=== PATIENT | female | born 1935 | race Caucasian/White ===

== ENCOUNTER 2018-06-26 15:27 | Inpatient (IN) | payer MEDICARE, BC ==
[~2018-06-26] VITALS: Ht 152.4 cm; Wt 57.7 kg
[~2018-06-26 15:27] MED LIST: CARB-96 PO
--- NOTE | 2018-06-26 15:35 | NUR ---
SEEN AND EXAMINED BY DR. NICHOLSON.
[2018-06-26] MEDS ORDERED: RIVA1PAT11 TD (15:40)
[2018-06-26] MEDS ORDERED: CARB1TAB21 PO (15:40)
--- NOTE | 2018-06-26 15:40 | NUR ---
PT [id number], C/O SYNCOPAL EPISODE AROUND 2:48PM FROM THE [facility],-INJURY, PT IS AAOX2-3, NOT IN RESPIRATORY DISTRESS, V/S STABLE, KEPT RESTED AND COMFORTABLE. WILL CONTINUE TO MONITOR.
--- NOTE | 2018-06-26 15:45 | NUR ---
LABS DRAWNED AND SENT TO LAB. AWAITING RESULTS.
[2018-06-26 15:55] LABS: BASOPHILS # (AUTO) 0.1 /CMM (0.0-0.2); BASOPHILS % (AUTO) 0.9 % (0.0-2.0); EOSINOPHILS % (AUTO) 1.6 % (0.0-6.0); HEMATOCRIT 41 % (33-45); HEMOGLOBIN 13.6 g/dL (11.5-14.8); LYMPHOCYTES # (AUTO) 2.2 /CMM (0.8-4.8); LYMPHOCYTES % (AUTO) 27.7 % (20.0-44.0); MEAN CORPUSCULAR HGB CONC 34 g/dl (31.0-36.0); MEAN CORPUSCULAR VOLUME 86 fL (82-100); MONOCYTES # (AUTO) 0.7 /CMM (0.1-1.30); MONOCYTES % (AUTO) 8.8 % (2.0-12.0); NEUTROPHILS # (AUTO) 4.8 /CMM (1.8-8.9); PLATELET COUNT (AUTO) 245 /CMM (150-450); RED BLOOD CELL COUNT(AUTO) 4.75 MIL/uL (4.0-5.2); WHITE BLOOD COUNT (AUTO) 7.9 K/uL (4.3-11.0)
[2018-06-26 16:04] LABS: CALCIUM, SERUM 9.6 mg/dL (8.5-10.1); CARBON DIOXIDE 31 mmol/L (21-32); CHLORIDE 105 mmol/L (98-107); GLUCOSE 130 mg/dL (74-106); POTASSIUM 4.6 mmol/L (3.5-5.1); SODIUM SERUM 140 mmol/L (136-145); UREA NITROGEN, BLOOD 17 mg/dL (7-18)
[2018-06-26 16:10] LABS: ALANINE AMINOTRANSFERASE 10 U/L (12-78); ALBUMIN 3.5 g/dL (3.4-5.0); ALKALINE PHOSPHATASE 79 U/L (46-116); ASPARTATE AMINOTRANSFERASE 23 U/L (15-37); BILIRUBIN,DIRECT 0.1 mg/dL (0.0-0.2); BILIRUBIN,TOTAL 0.4 mg/dL (0.2-1.0); TOTAL PROTEIN, SERUM 7.7 g/dL (6.4-8.2)
[2018-06-26] MEDS ORDERED: LORAZEPAM INJ 2 MG/ML VIAL IV ONE (16:30)
--- NOTE | 2018-06-26 17:41 | NUR ---
TECH AT BEDSIDE FOR XRAY.
--- NOTE | 2018-06-26 18:22 | NUR ---
DR. JUSTIN GLYNN AT BEDSIDE FOR EVAL.
[2018-06-26] MEDS ORDERED: MAG HYDROX/AL HYDROX/SIMETH 30 ML UDC PO PRN (18:30)
[2018-06-26] MEDS ORDERED: Z GUARD REMEDY 2 OZ OINT TP PRN (18:30)
[2018-06-26] MEDS ORDERED: ACETAMINOPHEN 325 MG TABLET PO PRN (18:30)
[2018-06-26] MEDS ORDERED: MAGNESIUM HYDROXIDE 30 ML UDC PO PRN (18:30)
[2018-06-26] MEDS ORDERED: ONDANSETRON HCL/PF 4 MG/2 ML VIAL IVP PRN (18:30)
[2018-06-26] MEDS ORDERED: ZOLPIDEM TARTRATE 5 MG TABLET PO PRN (18:30)
--- NOTE | 2018-06-26 19:29 | NUR ---
REPORT GIVEN TO MICHAEL COLLINS FOR NATHAN.
[2018-06-26] MEDS ORDERED: ENOXAPARIN SODIUM 40 MG/0.4 ML DISP.SYRIN SQ ONE (20:00)
--- NOTE | 2018-06-26 20:03 | NUR ---
REPORT GIVEN TO MICHAEL ACOSTA FOR NATHAN
[2018-06-26] MEDS ORDERED: ACETAMINOPHEN ES 500 MG TABLET ONE (20:15)
[2018-06-26 20:30] VITALS: BP 131/95
[2018-06-26] MEDS ORDERED: ACETAMINOPHEN ES 500 MG TABLET PO PRN (20:30)
--- NOTE | 2018-06-26 20:30 | NUR ---
RN NOTE RECEIVED PATIENT FROM AREN WHEEL WORKER, PATIENT IS ALERT/ORIENTED X 2, WITH TIMES OF CONFUSION, DAUGHTER ANGEL IS BY BEDSIDE AND CAREGIVER THAT WILL STAY WITH THE PATIENT OVERNIGHT, AMBULATE WITH ASSIST, DX POSSIBLE SEIZURE, HISTORY OF DEMENTIA AND PARKINSON, SR ON THE MONITOR, SKIN IS INTACT, RAC 20 GAUGE NOTED, NO S/S OF INFECTION/INFILTRATION NOTED, CONTINENT, ALL SAFETY MEASURES TAKEN, VITAL SIGNS STABLE, WILL CONTINUE TO MONITOR PATIENT
[2018-06-26] MEDS: CARBIDOPA/LEVODOPA 25/100 MG 1 UDTAB PO SCH (21:04)
[2018-06-26] MEDS: ASPIRIN EC 81 MG TABLET.DR PO SCH (21:05)
[2018-06-26] MEDS: HYDROCODONE/APAP 5/325MG 1 EACH TABLET PO PRN (21:15)
--- NOTE | 2018-06-27 | NUR ---
RN NOTE PATIENT I SALERT/ORIENTED X2, REFUSED VITAL SIGNS AT 0000, EXPLAINED ALL RISKS AND BENEFITS, STILL REFUSE, CHARGE NURSE IS AWARE
--- NOTE | 2018-06-27 01:54 | NUR ---
RN NOTE WOODROW TORO IS BY BEDSIDE, NEW ORDER OF URINE CULTURE IS GIVEN AND CARRIED OUT, URINE WAS COLLECTED AND SENT TO LAB
[2018-06-27 04:00] VITALS: BP 140/73
[2018-06-27 04:46] VITALS: BP 140/73
--- NOTE | 2018-06-27 06:48 | NUR ---
RN NOTE PATIENT RESTED WELL AT NIGHT, AWAKE, ALERT/ORIENTED X 2 WITH CONFUSION AT TIMES, CAREGIVER IS BY BEDSIDE, ALL SAFETY MEASURES TAKEN, BEDSIDE REPORT PROVIDED
--- NOTE | 2018-06-27 07:42 | NUR ---
FITNESS PROFESSIONAL OPENING NOTES RECEIVED PT LAYING IN BED, RESTING COMFORTABLY. PT IS EASILY AROUSABLE, A/O X1-2, AFEBRILE. RESPIRATIONS ARE EVEN AND UNLABORED. PT DENIES ANY PAIN AT THIS TIME, NO C/O SOB, N/V. IV SITE TO RAC INTACT, NO INFILTRATION NOTED. DRESSING KEPT CLEAN AND DRY. SAFETY MEASURES ARE IN PLACE. INSTRUCTED PT TO USE CALL LIGHT WHEN ASSISTANCE IS NEEDED, CALL LIGHT IS LEFT WITHIN REACH. PERSONAL CG AT BEDSIDE. WILL MONITOR THROUGHOUT SHIFT FOR CONTINUITY OF CARE.
[2018-06-27 07:49] LABS: BASOPHILS # (AUTO) 0.1 /CMM (0.0-0.2); BASOPHILS % (AUTO) 1.4 % (0.0-2.0); EOSINOPHILS % (AUTO) 0.9 % (0.0-6.0); HEMATOCRIT 42 % (33-45); HEMOGLOBIN 13.9 g/dL (11.5-14.8); LYMPHOCYTES # (AUTO) 2.3 /CMM (0.8-4.8); LYMPHOCYTES % (AUTO) 30.1 % (20.0-44.0); MEAN CORPUSCULAR HGB CONC 33 g/dl (31.0-36.0); MEAN CORPUSCULAR VOLUME 85 fL (82-100); MONOCYTES # (AUTO) 0.6 /CMM (0.1-1.30); MONOCYTES % (AUTO) 8.4 % (2.0-12.0); NEUTROPHILS # (AUTO) 4.5 /CMM (1.8-8.9); NEUTROPHILS % (AUTO) 59.2 % (43.0-81.0); PLATELET COUNT (AUTO) 234 /CMM (150-450); WHITE BLOOD COUNT (AUTO) 7.7 K/uL (4.3-11.0)
[2018-06-27 08:00] VITALS: BP 142/75
[2018-06-27 08:00] LABS: CALCIUM, SERUM 9.6 mg/dL (8.5-10.1); CARBON DIOXIDE 26 mmol/L (21-32); CHLORIDE 104 mmol/L (98-107); CREATININE 0.9 mg/dL (0.6-1.3); GLUCOSE 94 mg/dL (74-106); MAGNESIUM 2.2 mg/dL (1.8-2.4); PHOSPHORUS 3.5 mg/dL (2.5-4.9); POTASSIUM 4.1 mmol/L (3.5-5.1); SODIUM SERUM 141 mmol/L (136-145); UREA NITROGEN, BLOOD 17 mg/dL (7-18)
[2018-06-27 08:22] LABS: CHOLESTEROL 210 mg/dL (<200); HDL CHOLESTEROL 90 mg/dL (40-60); LDL 114 mg/dL (0-99)
[2018-06-27] MEDS: ASPIRIN EC 81 MG TABLET.DR PO SCH (08:24)
[2018-06-27] MEDS: CARBIDOPA/LEVODOPA 25/100 MG 1 UDTAB PO SCH ×3 (08:24→21:03)
[2018-06-27] MEDS: RIVASTIGMINE TARTRATE 4.6 MG PATCH.TD24 TD SCH (08:24)
[2018-06-27 08:46] LABS: THYROID STIMULATING HORMONE 1.957 uIU/mL (0.358-3.74); TRIGLYCERIDES 70 mg/dL (30-150)
[2018-06-27] MEDS ORDERED: IV NS 0.9% 1,000 ML IV PRN (12:30)
[2018-06-27] MEDS: CALCIUM CARB 600MG /VIT D 1 EACH TABLET PO SCH (14:10)
[2018-06-27 16:00] VITALS: BP 128/62
--- NOTE | 2018-06-27 16:40 | NUR ---
MS RN NOTES-- PT SEEN BY NEURO W/ ORDERS FOR EEG. READ BACK AND VERIFIED, ORDERS NOTED AND CARRIED OUT.
--- NOTE | 2018-06-27 18:10 | NUR ---
MS RN NOTES-- PT SEEN AND EXAMINED BY DR. GONZALEZ.
--- NOTE | 2018-06-27 18:45 | NUR ---
MS RN NOTES-- TRANSFERRED PT TO MS 2 IN STABLE CONDITION WITH ALL BELONGINGS.
--- NOTE | 2018-06-27 19:15 | NUR ---
MS RN CLOSING NOTES ALL DUE MEDS GIVEN, NEEDS MET AND ANTICIPATED. PT APPEARS TO BE MORE CONFUSED THAN USUAL. RESPIRATIONS ARE EVEN AND UNLABORED, NOT IN ANY ACUTE DISTRESS NOTED. NO FACIAL GRIMACING OR MOANING NOTED. NO SOB, N/V. NEW PERIPHERAL IV SITE TO LFA 22G INTACT, NO INFILTRATION NOTED. DRESSING KEPT CLEAN AND DRY. CAREGIVER AT BEDSIDE. URINE SPECIMEN COLLECTED AND PLACED IN FRIDGE. LAB MADE AWARE FOR P/U. SAFETY MEASURES ARE IN PLACE. ENDORSED TO STITCHER TAPE CONTROLLED MACHINE FOR CONTINUITY OF CARE.
--- NOTE | 2018-06-27 19:30 | NUR ---
RECEIVED PATIENT IN BED AWAKE, AO X 1, ABLE TO MAKE NEED KNOWN. NO ACUTE DISTRESS NOTED. DENIES ANY PAIN AT THIS TIME. IV SITE PATENT, INTACT; IVF INFUSING ORDERED. SAFETY REMINDERS GIVEN. ON LOW BED WITH BILATERAL UPPER SIDE RAILS UP. CALL CARPENTER WITHIN EASY REACH. WILL CONTINUE TO MONITOR.
[2018-06-27 20:00] VITALS: BP 135/76
--- NOTE | 2018-06-27 20:08 | NUR ---
PATIENT STRONGLY REFUSED EEG. MUCH ENCOURAGEMENT AND REASSURANCE GIVEN BY NURSE AND CAREGIVER. PATIENT UNABLE TO UNDERSTAND IMPORTANCE OF EEG DESPITE EDUCATION. PATIENT BECAME VERY RESTLESS, COULD NOT LIE STILL, KEPT SITTING UP. PER MAIL TRUCK DRIVER, TEST CANNOT BE PERFORMED DUE TO PATIENT'S BEHAVIOR.
[2018-06-27 20:29] LABS: APPEARANCE,URINE CLOUDY (CLEAR); BILIRUBIN,URINE NEGATIVE (NEGATIVE); BLOOD, URINE NEGATIVE Ery/uL (NEGATIVE); COLOR,URINE YELLOW (YELLOW); KETONES,URINE TRACE (NEGATIVE); LEUKOCYTE ESTERASE ,URINE TRACE (NEGATIVE); NITRITE, URINE POSITIVE (NEGATIVE); PH,URINE 8.5 (5.0-8.0); PROTEIN,URINE NEGATIVE (NEGATIVE); UGLUCOSE NEGATIVE (NEGATIVE); UROBILINOGEN,URINE 0.2 EU/dL (0.2)
[2018-06-27 20:39] VITALS: BP 135/76
[2018-06-27 20:39] LABS: BACTERIA,URINE Moderate /HPF (None Seen); RBC,URINE 0-2 /HPF (0-2); SQUAMOUS EPITHELIAL CELL,UR Rare /HPF (None Seen); WBC,URINE 0-2 /HPF (0-3)
[2018-06-27 20:40] LABS: TRIPLE PHOSPHATE CRYSTAL,UR Moderate /HPF (None Seen)
--- NOTE | 2018-06-27 21:01 | NUR ---
VERBAL CONSENT RECEIVED FROM DAUGHTER MASTER CASTORENA FOR CTA OF HEART; REZA RODRIGUEZ SECOND WITNESS.
[2018-06-27] MEDS: HYDROCODONE/APAP 5/325MG 1 EACH TABLET PO PRN (21:05)
[2018-06-27] MEDS ORDERED: ENOXAPARIN SODIUM 40 MG/0.4 ML DISP.SYRIN SQ SCH (22:00)
--- NOTE | 2018-06-28 06:00 | NUR ---
PATIENT ASLEEP, EASILY AROUSABLE. RESPIRATIONS EVEN. NO SIGNS OF PAIN NOTED. DUE MEDS GIVEN WITH NO ASE NOTED. NEEDS ATTENDED. KEPT CLEAN, DRY, AND COMFORTABLE. SAFETY PRECAUTIONS AND COMFORT MEASURES IN PLACE. WILL GIVE REPORT TO DAY SHIFT FOR CONTINUITY OF CARE. CAREGIVER AT BEDSIDE.
--- NOTE | 2018-06-28 07:47 | NUR ---
MS RN OPENING NOTES RECEIVED PT LAYING IN BED, AWAKE AND ALERT. PT IS A/O X1, AFEBRILE. RESPIRATIONS ARE EVEN AND UNLABORED, NOT IN ANY ACUTE DISTRESS NOTED. NO FACIAL GRIMACING OR MONING NOTED. NO C/O SOB, N/V. IV SITE TO R WRIST INTACT, NO INFILTRATION NOTED. DRESSING KEPT CLEAN AND DRY. CAREGIVER AT BEDSIDE. SAFETY MEASURES ARE IN PLACE. INSTRUCTED PT TO USE CALL LIGHT WHEN ASSISTANCE IS NEEDED, CALL LIGHT IS LEFT WITHIN REACH. WILL CONTINUE TO MONITOR FOR CONTINUITY OF CARE.
[2018-06-28 08:00] VITALS: BP 129/94
[2018-06-28] MEDS: ASPIRIN EC 81 MG TABLET.DR PO SCH (08:29)
[2018-06-28] MEDS: CALCIUM CARB 600MG /VIT D 1 EACH TABLET PO SCH (08:29)
[2018-06-28] MEDS: RIVASTIGMINE TARTRATE 4.6 MG PATCH.TD24 TD SCH (08:30)
[2018-06-28] MEDS ORDERED: CARBIDOPA/LEVODOPA 25/100 MG 1 UDTAB PO SCH (09:00)
[2018-06-28] MEDS ORDERED: IV NS 0.9% 250 ML IV ONE (11:08)
[2018-06-28] MEDS ORDERED: IOHEXOL-350 100 ML VIAL IV ONE (11:08)
[2018-06-28] MEDS ORDERED: CT SWABBABLE VALVE TRANS SET 1 EA INFUS.SET MC ONE (11:08)
[2018-06-28] MEDS ORDERED: IOHEXOL 50 ML IV ONE (11:19)
--- NOTE | 2018-06-28 12:00 | NUR ---
MS RN NOTES-- PT LEFT FOR CTA IN STABLE CONDITION VIA LIZANDRO.
[2018-06-28] MEDS: CARBIDOPA/LEVODOPA 25/100 MG 1 UDTAB PO SCH (12:04)
--- NOTE | 2018-06-28 12:45 | NUR ---
MS RN NOTES-- PT CAME BACK IN STABLE CONDITION FROM CTA IN STABLE CONDITION.
[2018-06-28 16:00] VITALS: BP 115/70
[2018-06-28] MEDS ORDERED: CARB1TAB21 PO ×2 (17:39)
[2018-06-28] MEDS ORDERED: Calcium Carb 600MG /Vit D PO (17:39)
[2018-06-28] MEDS ORDERED: ASPI-1152 PO (17:39)
--- NOTE | 2018-06-28 18:19 | NUR ---
MS RN NOTES-- RECEIVED ORDERS PER RONI WALLS THAT PT WILL BE DISCHARGED BACK TO HOME WITH HH.
--- NOTE | 2018-06-28 19:15 | NUR ---
MS SUPPLIER SPECIALIST NOTE PT DISCHARGE TO HOME IN STABLE CONDITION VIA PERSONAL CAR. PT IS A/OX1-2, AFEBRILE. RESPIRATIONS ARE EVEN AND UNLABORED, NOT IN ANY ACUTE DISTRESS NOTED. PUPILS ARE REACTIVE TO LIGHT. BILATERAL HAND AV SPECIALIST ARE STRONG AND EQUAL. ABDOMEN IS SOFT AND NONDISTENDED, BOWEL SOUNDS ARE PRESENT IN ALL 4 QUADRANTS UPON AUSCULTATION. DENIES ANY BLADDER DISCOMFORT. NO SKIN ISSUES NOTED. IV SITES REMOVED, APPLIED PRESSURE AND TOLERATED WELL. EXPLAINED DISCHARGE PAPERWORK TO PT AND DAUGHTER MASTER W/ VERBAL AND WRITTEN AGREEMENT. PT ACCOMPANIED TO VEHICLE VIA WHEELCHAIR WITH 1 STAFF AND CAREGIVER. PT LEFT IN STABLE CONDITION W/ ALL BELONGINGS.
== END 2018-06-28 19:15 | DRG 884 ==
LOC: ER 15:31 → TELE 19:22 → MED 06-27 10:51 → MEDSG2 06-27 19:00
PROVIDERS: ADMIT Nurse Practitioner Acute Care; ATTEND Registered Nurse
DX: R40.4 Transient alteration of awareness (principal); G93.41 Metabolic encephalopathy; G20 Parkinson's disease; R55 Syncope and collapse; D15.1 Benign neoplasm of heart; F02.80 Dementia in other diseases classified elsewhere, unspecified severity, without behavioral disturbance, psychotic disturbance, mood disturbance, and anxiety; Z86.73 Personal history of transient ischemic attack (TIA), and cerebral infarction without residual deficits; Z91.81 History of falling
CPT/HCPCS: 36415; 70450-TC; 71045-TC; 75574; 80048-TC; 80061-TC; 80076-TC; 81000-TC; 82962-TC; 83735-TC; 84100-TC; 84443-TC; 85025-TC; 85730-TC; 87040-TC; 87081-TC; 87086-TC; 93307-TC; 93880-TC; G0378; J1650; J7030; J7050; Q9967